=== PATIENT | female | born 1970 | race Caucasian/White ===

== ENCOUNTER → 2018-07-31 | Outpatient (CLI) | payer OTHER ==
[~2018-07-31] MED LIST: CELEXA40 MG PO; COLACE 100100 MG/CAP PO; GLUCOPHAGE500 MG/TAB PO; HUMALOG100 U/ML SQ; KLOR-CON 1010 MEQ PO; LANTUS100 U/ML SQ; LASIX 40MG TABL40 MG PO; MACROBID 1100 MG/CAP PO; MICRONASE5 MG PO; PERCOCET 325 MG1 TA2 PO; PROTONIX 40MG T40 MG PO; TENORMIN 5050 MG/TAB PO; ZESTRIL 20MG TA20 MG PO; ZOCOR 40MG40 MG PO
== END ==
LOC: COL.RAD 13:44
DX: M17.12 Unilateral primary osteoarthritis, left knee (principal)

== ENCOUNTER 2021-06-08 10:42 | Inpatient (IN) | payer BC ==
[2021-06-08] VITALS (184 sets, daily range): BP systolic 154–219; BP diastolic 88–113; PULSE 77–100; TEMP 98.2–99.1; O2SAT 76–100
[~2021-06-08] VITALS: Ht 162.6 cm; Wt 153.4 kg
[2021-06-08] MEDS ORDERED: LIPITOR 10MG10 MG PO (12:29)
[2021-06-08] MEDS ORDERED: CELEBREX 200MG200 MG PO (12:30)
[2021-06-08] MEDS ORDERED: GLUCOTROL10 MG PO (12:34)
[2021-06-08] MEDS ORDERED: APRESOLINE 25MG25 MG PO (12:40)
[2021-06-08 13:09] LABS: HEMATOCRIT 42.3 % (37.0-47.0); HEMOGLOBIN 13.1 g/dl (12.5-16.0); MEAN CELL VOLUME 87 fl (80.0-100.0); MEAN CORPUSCULAR HEMOGLOBIN 27 pg (27.0-31.0); MEAN CORPUSCULAR HGB CONC 31 g/dl (33.0-37.0); MEAN PLATELET VOLUME 9.4 fl (7.4-10.4); PLATELET COUNT 370 K/mm3 (130-400); RED BLOOD COUNT 4.89 M/mm3 (4.10-5.30); REDCELL DISTRIBUTION WIDTH-CV 17.3 % (11.5-14.5)
[2021-06-08] MEDS ORDERED: PRILOSEC 20MG20 MG PO (13:15)
[2021-06-08] MEDS ORDERED: BIOTIN10000 MC1 PO (13:16)
[2021-06-08] MEDS ORDERED: B COMPLEX & B121 TAB PO (13:16)
[2021-06-08] MEDS ORDERED: VITAMIN D31000 I1 PO (13:17)
[2021-06-08] MEDS ORDERED: LOPRESSOR100 MG PO (13:18)
[2021-06-08] MEDS ORDERED: LEVEMIR100 U/ML SQ (13:19)
[2021-06-08] MEDS ORDERED: NOVOLOG 100U100 U/M1 SQ (13:19)
[2021-06-08] MEDS ORDERED: ULTRAM 50MG TAB50 MG PO (13:20)
[2021-06-08] MEDS ORDERED: TYLENOL 500MG500 MG PO (13:20)
[2021-06-08] MEDS ORDERED: VOLTAREN GEL 1%1 TU TP (13:21)
[2021-06-08 13:22] LABS: INR 1.1 (0.8-3.0); PROTHROMBIN TIME 12.6 SECONDS (9.7-12.8)
[2021-06-08 13:23] LABS: ALBUMIN 2.9 gm/dL (3.5-5.0); BILIRUBIN,TOTAL 0.7 mg/dL (0.2-1.2); CALCIUM 9.3 mg/dL (8.4-10.2); CREATININE, serum 1.12 mg/dL (0.57-1.11); POTASSIUM 4.5 mmol/L (3.5-4.5); TOTAL PROTEIN 7.9 gm/dL (6.2-8.1)
[2021-06-08 13:24] LABS: PARTIAL THROMBOPLASTIN TIME 47.5 SECONDS (26.0-37.0)
[2021-06-08 13:41] LABS: ANISOCYTOSIS 1+; BAND 18 % (0-10); LYMPHOCYTE 1 % (20.0-51.0); NEUTROPHILS 81 % (42.0-75.2); PLATELET ESTIMATE NORMAL (NORMAL)
[2021-06-08 13:42] LABS: TROPONIN-I 0.567 ng/mL (0.00-0.033)
[2021-06-08 16:09] LABS: MUCOUS Present (NOT PRESENT); PH 5 (5-8); SQUAMOUS EPITHELIAL 0-2 /hpf (0-10); URINE APPEARANCE Clear (CLEAR/HAZY); URINE BACTERIA None Seen (NONE SEEN); URINE BILIRUBIN Negative (NEGATIVE); URINE BLOOD 1+ (NEGATIVE); URINE COLOR Yellow (YELLOW); URINE GLUCOSE 3+ (NEGATIVE); URINE KETONE Negative (NEGATIVE); URINE LEUKOCYTE ESTERASE Negative (NEGATIVE); URINE NITRATE Negative (NEGATIVE); URINE PROTEIN(semi-quant) 3+ (NEGATIVE); URINE UROBILINOGEN Negative (NEGATIVE); URINE WBC 0-2 /hpf (0-2)
[2021-06-08 16:46] LABS: COLLECTION METHOD CLEAN CATCH
--- NOTE | 2021-06-08 17:12 | NUR ---
RECEIVED REPORT FROM ROXY FLEMING FROM [facility]. AWAITING ARRIVAL TO ICU 4.
--- NOTE | 2021-06-08 17:55 | NUR ---
Pt transferred down to ICU, BP's remained elevated despite medications. Pt reports a DUNHAM and some dizziness when changing positions. She denies any CP. Pt very quick to fall asleep in conversation. Verified medications with patient's daughter. Pt in isolation d/t close contact with KAREN. On heparin drip per protocol. Handoff to ROXY Valverde.
--- NOTE | 2021-06-08 19:33 | NUR ---
UPDATED PT'S DAUGHTER NESS AND PT'S REQUESTED PHONE BROUGHT UP AT SOME POINT SOON.
[2021-06-09] VITALS (571 sets, daily range): BP systolic 123–187; BP diastolic 58–103; PULSE 73–115; TEMP 98.2–98.8; O2SAT 58–100
--- NOTE | 2021-06-09 03:39 | NUR ---
Vancomycin Initial Dosing Pharmacy Note Ordering provider: Tete Estrada DO Indication/duration: Preliminary BC from [facility] positive for Gr+ cocci Relevant comorbidities: DM, HTN LABS: WBC = 24.9, SCr = 1.12 Recommendation: Will draw troughs and follow levels. Loading dose: 2 grams Maintenance dose: 1.5 grams every 12 hours Trough goal: 15-20 ug/mL
[2021-06-09 07:16] LABS: HEMATOCRIT 38.8 % (37.0-47.0); HEMOGLOBIN 11.7 g/dl (12.5-16.0); MEAN CELL VOLUME 89 fl (80.0-100.0); MEAN CORPUSCULAR HEMOGLOBIN 27 pg (27.0-31.0); MEAN CORPUSCULAR HGB CONC 30 g/dl (33.0-37.0); MEAN PLATELET VOLUME 9.3 fl (7.4-10.4); PLATELET COUNT 343 K/mm3 (130-400); RED BLOOD COUNT 4.37 M/mm3 (4.10-5.30); REDCELL DISTRIBUTION WIDTH-CV 17.4 % (11.5-14.5)
[2021-06-09 07:38] LABS: CALCIUM 9.2 mg/dL (8.4-10.2); POTASSIUM 3.7 mmol/L (3.5-4.5)
[2021-06-09 07:51] LABS: BAND 3 % (0-10); EOSINOPHIL 1 % (0-4); HYPOCHROMIA 3+; LYMPHOCYTE 4 % (20.0-51.0); NEUTROPHILS 88 % (42.0-75.2); PLATELET ESTIMATE NORMAL (NORMAL)
[2021-06-09 07:52] LABS: ANISOCYTOSIS 1+
[2021-06-09 12:21] LABS: INR 1.1 (0.8-3.0); PROTHROMBIN TIME 12.2 SECONDS (9.7-12.8)
[2021-06-09 12:24] LABS: PARTIAL THROMBOPLASTIN TIME 42.7 SECONDS (26.0-37.0)
--- NOTE | 2021-06-09 13:50 | NUR ---
Patient is a PUI at this time. clean up worker contacted patient's daughter, Pushpa #[phone] to assess for discharge planning. Pushpa states that patient's (Tripp #[phone]) works nights and sleeps during the day and desires all communication with the hospital to go through Pushpa. Patient does not have advance directives and works at [employer] in [place]. Patient lives with spouse, adult daughter, Pushpa and her 8 year old son, Terese. Pushpa states that Terese was positive for Covid and they all live together. Pushpa states that patient was testing daily as she works in a longterm and had been testing negative for covid. Patient's primary care provider is RISA Blank with Dr Starr Bird's office. Patient does have health insurance and daughter will email a copy of patient's card.
--- NOTE | 2021-06-09 16:02 | NUR ---
PATIENT LEFT FOR AUTO BENCH MECHANIC WITH AUTO BENCH MECHANIC STAFF ON STRETCHER.
--- NOTE | 2021-06-09 16:35 | NUR ---
SEE MERGE FOR ALL MEDICATION ADMINISTRATION TIMES, INTRA AND POST SEDATION
--- NOTE | 2021-06-09 17:29 | NUR ---
PATIENT RETURNED FROM [employer]ER[employer] SALES REPRESENTATIVE VIA STRETCHER. RECIEVED BEDSIDE REPORT. PT HAS A TR-BAND IN PLACE WITH SOME RESIDUAL BLEEDING, NO ACTIVE BLEEDING AT THE SITE. WILL CONTINUE TO MONITOR PER POST COMMERCIAL SALES REPRESENTATIVE PROTOCOL.
--- NOTE | 2021-06-09 20:00 | NUR ---
Patient resting quietly in bed with eyes closed. Patient continues to receive cardene drip at 5 mg/hr to a [facility] PICC. Patient's right radial cath access site is covered with a TR band with approximately 8mL of air per report received from ROXY Billy. Cath site has some scant-mild dried drainage present under TR band. Area is bruised although no swelling or hematoma is present. Bruising extends to the mid-wrist. Pulses are palpable. Patient denies pain at the site but states she is uncomfortable, rating back pain as 4/10. She is receiving 12L oxygen via oxymask, satting 98%. Oxygen titrated to 10L; patient tolerated well. PRN Tylenol to be administered. All vitals within normal limits. Patient provided with a snack prior to bed. No further needs noted at this time.
[2021-06-10] VITALS (382 sets, daily range): BP systolic 124–154; BP diastolic 71–87; PULSE 71–104; TEMP 97.9–98.8; O2SAT 76–99
[2021-06-10 04:49] LABS: HEMATOCRIT 40.5 % (37.0-47.0); HEMOGLOBIN 12.6 g/dl (12.5-16.0); MEAN CELL VOLUME 86 fl (80.0-100.0); MEAN CORPUSCULAR HEMOGLOBIN 27 pg (27.0-31.0); MEAN CORPUSCULAR HGB CONC 31 g/dl (33.0-37.0); MEAN PLATELET VOLUME 9.5 fl (7.4-10.4); PLATELET COUNT 392 K/mm3 (130-400); RED BLOOD COUNT 4.72 M/mm3 (4.10-5.30); REDCELL DISTRIBUTION WIDTH-CV 17.2 % (11.5-14.5)
[2021-06-10 05:09] LABS: CALCIUM 8.6 mg/dL (8.4-10.2); CREATININE, serum 1.38 mg/dL (0.57-1.11); POTASSIUM 4.6 mmol/L (3.5-4.5)
[2021-06-10 05:48] LABS: BAND 13 % (0-10); LYMPHOCYTE 3 % (20.0-51.0); NEUTROPHILS 82 % (42.0-75.2); PLATELET ESTIMATE NORMAL (NORMAL)
[2021-06-10 05:49] LABS: ANISOCYTOSIS 1+; HYPOCHROMIA 2+
--- NOTE | 2021-06-10 06:00 | NUR ---
Patient's oxygen has been titrated to 7L via oxymask throughout NOC. Patient has tolerated well.
--- NOTE | 2021-06-10 08:57 | NUR ---
home health care worker did not receive insurance card from daughter and called to secure information: GONZALES JUÁREZ, ID: [id number] Grp: [phone]. Worker notified R1 and nurse correctional casework specialist, Farnaz of the above information.
--- NOTE | 2021-06-10 09:00 | NUR ---
MISS HADDAD IS UP IN A CHAIR EATING BREAKFAST. HER OXYGEN NEEDS ARE NOT MUCH YSTERDAY, SHE IS A 2L OXYMASK FROM 12 L OXYMASK AND CARDENE IS ON STANDBY PER PROTOCOL. WILL MONITOR FOR HTN.
--- NOTE | 2021-06-10 10:00 | NUR ---
PATIENTS RAJ CARRASCO HAS BEEN PLACED ON STANDBY, WILL CONTINUE TO MONITOR FOR HYPERTENSION
--- NOTE | 2021-06-10 15:40 | NUR ---
TRANSFERED TO BED 302 VIA WHEELCHAIR AT 1540.
--- NOTE | 2021-06-10 19:06 | NUR ---
PT PLEASANT, AOX4, ASSESSMENT PERFORMED, PT ON 2L OM, PT ORDERED DINNER HAS NOT ARRIVED YET, INSULIN GIVEN, DENIES PAIN, NO OTHER NEEDS
--- NOTE | 2021-06-10 19:48 | NUR ---
PT LAYING IN BED WITH OXY MASK ON, WITH 2 L. PT DINNER TRAY BROUGHT IN. PT DENIES ANY PAIN. NO OTHER NEEDS AT THIS TIME.
--- NOTE | 2021-06-10 22:44 | NUR ---
PT IS PLEASANT AND CONVERSANT. TOOK ALL MEDICATIONS PRESCRIBED. ASSISTED PT TO BEDSIDE COMMODE. PT HAS STEADY EQUAL GAIT, BUT STILL FEELS BETTER WITH A SBA DUE TO A "BAD KNEE". THIS RN STATED THEN SHE WILL REMAIN A SBA DUE TO THIS REASON. CALL LIGHT IN REACH, NO OTHER NEEDS AT THIS TIME.
[2021-06-11] VITALS: PULSE 68
[2021-06-11 03:47] VITALS: BP 152/82; PULSE 76; TEMP 97.7
[2021-06-11 04:54] LABS: ARTERIAL BLD GAS O2 SATURATION 96.7 % (92-100); ARTERIAL BLD GAS TCO2 CT 25.2; ARTERIAL BLOOD GAS BASE EXCESS 0.7 (-2-2); ARTERIAL BLOOD GAS HCO3 24.2 meq/L (22-26); ARTERIAL BLOOD GAS PCO2 34.9 mmHg (35-45); ARTERIAL BLOOD GAS PO2 82.8 mmHg (80-100); ARTERIAL BLOOD GAS pH 7.46 (7.35-7.45)
--- NOTE | 2021-06-11 06:03 | NUR ---
PT HAD AN UNEVENTFUL NIGHT. TOOK MEDICATIONS PRESCRIBED. SLEPT ON BIPAP ALL NIGHT WITH NO ISSUES. ASSISTED PT TO BEDSIDE COMMODE AND PT HAD STEADY GAIT, JUST LIKES SOMEONE THERE JUST IN CASE. PT OXYGEN DEMANDS DID NOT INCREASE, PATIENT DENIED PAIN, SOB, N/V THROUGHOUT SHIFT. CALL LIGHT IN REACH, NO OTHER NEEDS AT THIS TIME.
[2021-06-11 07:40] LABS: CALCIUM 9.1 mg/dL (8.4-10.2); CREATININE, serum 1.58 mg/dL (0.57-1.11); POTASSIUM 3.9 mmol/L (3.5-4.5)
[2021-06-11 08:00] VITALS: BP 157/88; PULSE 81; TEMP 98.7
[2021-06-11 08:08] LABS: HEMOGLOBIN 11.7 g/dl (12.5-16.0); MEAN CELL VOLUME 84 fl (80.0-100.0); MEAN CORPUSCULAR HEMOGLOBIN 27 pg (27.0-31.0); MEAN CORPUSCULAR HGB CONC 32 g/dl (33.0-37.0); MEAN PLATELET VOLUME 9.6 fl (7.4-10.4); PLATELET COUNT 342 K/mm3 (130-400); RED BLOOD COUNT 4.42 M/mm3 (4.10-5.30); REDCELL DISTRIBUTION WIDTH-CV 17.1 % (11.5-14.5)
--- NOTE | 2021-06-11 09:00 | NUR ---
PT PLEASANT, AOX4, DENIES CHEST PAIN, REPORTS GENERALIZED PAIN 2/10, TYLENOL GIVEN WITH OTHER MORNING MEDICATIONS. PT EDUCATED ON ALL MEDICATIONS GIVEN IN AM. PT REPORTS NOT HAVING BM SINCE MONDAY. DR. KUMAR NOTIFIED AND MIRALAX ORDERED. PT TAKEN OFF OF BIPAP AND PLACED ON OXYMASK, BREAKFAST BROUGHT IN FOR PT, PT MENTIONED WANTING TO TAKE A SHOWER LATER, FRESH ICE WATER BROUGHT IN, CALL LIGHT WITHIN REACH, NO OTHER NEEDS AT THIS TIME
[2021-06-11 09:06] LABS: ANISOCYTOSIS 1+; HYPOCHROMIA 2+; LYMPHOCYTE 6 % (20.0-51.0); NEUTROPHILS 86 % (42.0-75.2); PLATELET ESTIMATE NORMAL (NORMAL)
[2021-06-11 12:00] VITALS: BP 135/71; PULSE 71; TEMP 98.5
--- NOTE | 2021-06-11 12:18 | NUR ---
Vancomycin Follow-up Pharmacy Note Current regimen: Vancomycin 1.5 gm IV q12h Vancomycin trough: 29.99 Adjustments: Will hold Vancomycin and restart Vancomycin 1.5 gm IV q24h tomorrow. Pharmacy will continue to closely monitor.
--- NOTE | 2021-06-11 12:29 | NUR ---
[facility] CALLED TO PHARMACY
[2021-06-11 16:00] VITALS: BP 150/81; PULSE 66; TEMP 98.5
--- NOTE | 2021-06-11 16:20 | NUR ---
Licensed Clinician collaborated with RN who advised patient has been independent in the room.
--- NOTE | 2021-06-11 18:37 | NUR ---
PT GIVEN COUGH DROP PER REQUEST, PT PLEASANT, AOX4, REPORTING GENERALIZED PAIN 2/10 DURING DAY UNRELIEVED BY TYLENOL, ON 2L NC DURING SHIFT, NO OTHER NEEDS
[2021-06-11 20:00] VITALS: BP 161/87; PULSE 74; TEMP 98.4
--- NOTE | 2021-06-11 22:36 | NUR ---
Patient alert and oriented. Patient denies SOB or dyspnea while at rest. Patient curretly on 2L oxygen via NC. Patient reports generalized pain 09/16. PRN Tylenol given for pain. All scheduled meds given per SEP. Call light in reach. Will continue to monitor.
[2021-06-12 00:49] VITALS: BP 146/65; PULSE 59; TEMP 97.7
[2021-06-12 05:21] VITALS: BP 164/72; PULSE 60; TEMP 97.7
[2021-06-12 07:44] LABS: MEAN CELL VOLUME 87 fl (80.0-100.0); MEAN CORPUSCULAR HEMOGLOBIN 27 pg (27.0-31.0); MEAN CORPUSCULAR HGB CONC 31 g/dl (33.0-37.0); MEAN PLATELET VOLUME 9.4 fl (7.4-10.4); PLATELET COUNT 289 K/mm3 (130-400); RED BLOOD COUNT 4.12 M/mm3 (4.10-5.30); REDCELL DISTRIBUTION WIDTH-CV 16.5 % (11.5-14.5)
[2021-06-12 07:45] LABS: HEMATOCRIT 35.9 % (37.0-47.0)
[2021-06-12 07:56] LABS: CALCIUM 8.9 mg/dL (8.4-10.2); CREATININE, serum 1.48 mg/dL (0.57-1.11); POTASSIUM 3.8 mmol/L (3.5-4.5)
[2021-06-12 08:47] VITALS: BP 162/91; PULSE 63; TEMP 98.4
[2021-06-12 09:05] LABS: LYMPHOCYTE 13 % (20.0-51.0); NEUTROPHILS 77 % (42.0-75.2)
[2021-06-12 09:06] LABS: ANISOCYTOSIS 1+; HYPOCHROMIA 3+; PLATELET ESTIMATE NORMAL (NORMAL)
--- NOTE | 2021-06-12 10:41 | NUR ---
PT ASSESSED. NO COMPLAINTS OF PAIN OR DYSPNEA. REPORTS FEELING SHAKY AND DIAPHORETIC. BLOOD SUGAR OBTAINED AND READS 59. ORANGE JUICE AND SUGAR PACKETS PROVIDED. PT REQUESTS TO TAKE INSULIN ORDERED. NO OTHER COMPLAINTS OR CONCERNS AT THIS TIME. CALL LIGHT WITHIN REACH
[2021-06-12 13:00] VITALS: BP 151/85; PULSE 61; TEMP 98.5
[2021-06-12 16:57] VITALS: BP 158/95; PULSE 65; TEMP 98.3
[2021-06-12 21:22] VITALS: BP 155/79; PULSE 67; TEMP 98.2
--- NOTE | 2021-06-12 21:49 | NUR ---
Patient sitting up in the chair upon enter the room. Patient pleasant, alert and oriented. Patient states feeling much better today. Patient currently on room air. Breathing even and unlabored. All scheduled meds given per SEP. Bed sheets changed at this time. Call light in reach. Will continue to monitor.
[2021-06-13] VITALS: BP 139/56; PULSE 73; TEMP 98.1
[2021-06-13 05:00] VITALS: BP 185/90; PULSE 66
[2021-06-13 05:55] VITALS: BP 185/95; BP 189/95; PULSE 67; TEMP 98.5
--- NOTE | 2021-06-13 06:10 | NUR ---
Patient's BP was 185/90 around 5 am. Patient denies chest pain, headache, dizziness, or any other hypertensive symptoms. Called DAVION Ruano and updated. Received order to give PRN hydralazine. PRN hydralazine IV given per order. BP recheck after 20 minutes of giving PRN hydralazine was 175/90. Call light in reach. Encouraged patient to call the nurse if having chest pain or any hypertensive symptoms. Patient agreed. Will continue to monitor.
[2021-06-13 07:12] LABS: CALCIUM 8.9 mg/dL (8.4-10.2); CREATININE, serum 1.35 mg/dL (0.57-1.11); POTASSIUM 4.3 mmol/L (3.5-4.5)
[2021-06-13 07:54] VITALS: BP 163/74; PULSE 65; TEMP 98.6
[2021-06-13 08:05] LABS: HEMATOCRIT 38.5 % (37.0-47.0); HEMOGLOBIN 11.6 g/dl (12.5-16.0); MEAN CELL VOLUME 88 fl (80.0-100.0); MEAN CORPUSCULAR HEMOGLOBIN 27 pg (27.0-31.0); MEAN CORPUSCULAR HGB CONC 30 g/dl (33.0-37.0); MEAN PLATELET VOLUME 9.6 fl (7.4-10.4); PLATELET COUNT 279 K/mm3 (130-400); RED BLOOD COUNT 4.37 M/mm3 (4.10-5.30); REDCELL DISTRIBUTION WIDTH-CV 16.3 % (11.5-14.5)
--- NOTE | 2021-06-13 10:48 | NUR ---
PT ASSESSED. NO COMPLAINTS OF DYPNEA OR NAUSEA. COMPLAINS OF PAIN AND IS MEDICATED PER MAR. NO OTHER COMPLAINTS OR CONCERNS AT THIS TIME.
[2021-06-13 11:25] LABS: HYPOCHROMIA 3+; LYMPHOCYTE 16 % (20.0-51.0); NEUTROPHILS 81 % (42.0-75.2)
[2021-06-13 11:26] LABS: ANISOCYTOSIS 1+; PLATELET ESTIMATE NORMAL (NORMAL)
[2021-06-13 12:35] VITALS: BP 157/69; PULSE 66; TEMP 98.5
[2021-06-13] MEDS ORDERED: COREG 25MG25 MG/TAB PO (14:24)
[2021-06-13] MEDS ORDERED: NORVASC 10MG10 MG PO (14:25)
[2021-06-13] MEDS ORDERED: LASIX 20MG TABL20 MG PO (14:26)
[2021-06-13] MEDS ORDERED: OMNICEF 300MG300 MG PO (14:29)
--- NOTE | 2021-06-13 16:28 | NUR ---
DISCHARGE INSTRUCTIONS COMPLETE. ALL QUESTIONS ANSWERED. INSTRUCTION FOR WHERE TO FLOAT REMOVER NEW MEDICATIONS WELL WHEN TO MAKE FOLLOW UP APPOINTMENTS GIVEN. PICC REMOVED BY KEVIN RAMSEY. NO OTHER QUESTIONS OR CONCERNS.
== END 2021-06-13 16:29 | disposition home or self-care (01) | DRG 280 ==
LOC: MEDICAL 10:42 → ICU 11:15 → MEDICAL 11:29 → ICU 18:03 → MEDICAL 06-10 16:13
PROVIDERS: Internal Medicine; Internal Medicine Pulmonary Disease; Nurse Practitioner; ADMIT Student in an Organized Health Care Education/Training Program
PROC: 4A023N7 Measurement of Cardiac Sampling and Pressure, Left Heart, Percutaneous Approach (ICD-10-PCS; principal; 2021-06-09)
PROC: B211YZZ Fluoroscopy of Multiple Coronary Arteries using Other Contrast (ICD-10-PCS; 2021-06-09)
PROC: 02HV33Z Insertion of Infusion Device into Superior Vena Cava, Percutaneous Approach (ICD-10-PCS; 2021-06-09)
PROC: 5A09357 Assistance with Respiratory Ventilation, Less than 24 Consecutive Hours, Continuous Positive Airway Pressure (ICD-10-PCS; 2021-06-10)
DX: I16.1 Hypertensive emergency (principal); I21.4 Non-ST elevation (NSTEMI) myocardial infarction; I50.33 Acute on chronic diastolic (congestive) heart failure; J96.01 Acute respiratory failure with hypoxia; N17.9 Acute kidney failure, unspecified; L03.90 Cellulitis, unspecified; Z68.43 Body mass index [BMI] 50.0-59.9, adult; F41.9 Anxiety disorder, unspecified; E66.01 Morbid (severe) obesity due to excess calories; G47.33 Obstructive sleep apnea (adult) (pediatric); Z79.84 Long term (current) use of oral hypoglycemic drugs; Z79.4 Long term (current) use of insulin; R00.0 Tachycardia, unspecified; E11.9 Type 2 diabetes mellitus without complications; I89.0 Lymphedema, not elsewhere classified; I11.0 Hypertensive heart disease with heart failure; Z20.822 Contact with and (suspected) exposure to COVID-19
CPT/HCPCS: 99223-AI; 99233-AI; 99239; A9540; C1751; C1887; J0360; J0696; J1100; J1200; J1644; J1815; J1940; J2250; J2930; J3010; J3370; J7040; J7050; J7512